=== PATIENT | male | born 1960 ===

== ENCOUNTER 2021-09-09 13:09 | Emergency (ER) | payer OTHER ==
[~2021-09-09] VITALS: Ht 160 cm; Wt 102.1 kg
[~2021-09-09 13:09] MED LIST: ENALAPRIL MALEA10 MG; GLUCOPHAGE XR500 MG
[2021-09-09] MEDS ORDERED: PRILOSEC OTC20 MG (13:21)
[2021-09-09] MEDS ORDERED: NEURONTIN300 MG (13:22)
[2021-09-09] MEDS ORDERED: LIPITOR20 MG PO (13:23)
== END 2021-09-09 17:40 ==
LOC: ER 13:09
DX: R07.89 Other chest pain (principal); Z03.818 Encounter for observation for suspected exposure to other biological agents ruled out